=== PATIENT | male | born 1990 | race Caucasian/White ===

== ENCOUNTER → 2019-02-17 | Outpatient (CLI) | payer OTHER ==
[~2019-02-17] MED LIST: ZOFR4TAB16 PO
--- NOTE | 2019-02-17 17:17 | REP ---
CT ABDOMEN WITHOUT CONTRAST: CT ABDOMEN WAS PERFORMED WITHOUT IV CONTRAST: Sagittal and coronal reconstructions images are performed. Visualized lung bases are clear. The liver is grossly unremarkable. The gallbladder is contracted. There is no definite biliary dilatation. The spleen is normal in size with no intrinsic abnormality. The adrenal glands are normal. The pancreas is grossly unremarkable. Kidneys demonstrate no contour abnormality or hydronephrosis. There is a 2 mm intrarenal calculus in the mid right renal collecting system with a punctate calcification in the lower pole. There are two adjacent intrarenal calcifications in the upper pole of the left kidney measuring approximately 2 mm in diameter, with a punctate calcification in the mid left kidney. There is no hydroureter bilaterally. Abdominal aorta is normal in caliber. No adenopathy is seen. There is no free air or free fluid in the abdomen. No bowel wall thickening is seen. The appendix is normal. IMPRESSION: Tiny intrarenal calculi bilaterally without hydronephrosis. No other significant abnormality. Electronically Signed by Zain Myers MD 02/18/2019 12:46 P
== END ==
LOC: M RAD 16:13
PROVIDERS: ATTEND Physician Assistant
DX: K41.90 Unilateral femoral hernia, without obstruction or gangrene, not specified as recurrent (principal)

== ENCOUNTER 2019-02-18 19:48 | Emergency (ER) | payer OTHER ==
[~2019-02-18] VITALS: Ht 175.3 cm; Wt 100.0 kg
[2019-02-18] MEDS ORDERED: ONDANSETRON 4MG/2ML VIAL (J2405) IV ONE (20:45)
[2019-02-18] MEDS ORDERED: NS 1,000 ML IV ONE (20:45)
[2019-02-18 21:13] LABS: BASO # 0.1 10^3/uL (0.0-0.2); BASO % 0.4 % (0.0-1.0); EOS # 0.2 10^3/uL (0.0-0.5); EOS % 1.4 % (0.0-3.0); HEMATOCRIT 50.3 % (42.0-52.0); HEMOGLOBIN 16.7 g/dl (13.5-17.5); LYMPH # 1.4 10^3/uL (1.5-5.0); LYMPH % 11.3 % (24.0-44.0); MEAN CORPUSCULAR HEMOGLOBIN 29.1 pg (27.0-33.0); MEAN CORPUSCULAR HGB CONC 33.2 g/dl (32.0-36.5); MEAN CORPUSCULAR VOLUME 87.6 fl (80.0-96.0); MONO % 8.4 % (0.0-5.0); NEUTROPHILS # 9.7 10^3/uL (1.5-8.5); NEUTROPHILS % 78.1 % (36.0-66.0); PLATELET COUNT, AUTOMATED 170 10^3/uL (150-450); RED BLOOD COUNT 5.74 10^6/uL (4.30-6.10); WHITE BLOOD COUNT 12.4 10^3/uL (4.0-10.0)
[2019-02-18 21:42] LABS: ALBUMIN 3.3 GM/DL (3.2-5.2); ALT/SGPT 19 U/L (12-78); BILIRUBIN,DIRECT 0.2 MG/DL (0.0-0.2); BILIRUBIN,TOTAL 1.3 MG/DL (0.2-1.0); BLOOD UREA NITROGEN 16 MG/DL (7-18); CALCIUM LEVEL 7.1 MG/DL (8.5-10.1); CARBON DIOXIDE LEVEL 23 MEQ/L (21-32); CHLORIDE LEVEL 113 MEQ/L (98-107); CREATININE FOR GFR 0.81 MG/DL (0.70-1.30); GLOMERULAR FILTRATION RATE > 60.0 (>60); GLUCOSE, FASTING 79 MG/DL (70-100); LIPASE 56 U/L (73-393); POTASSIUM SERUM 3.3 MEQ/L (3.5-5.1); SODIUM LEVEL 144 MEQ/L (136-145); TOTAL PROTEIN 5.6 GM/DL (6.4-8.2)
[2019-02-18] MEDS ORDERED: POTASSIUM CHLORIDE 10 MEQ SR TABLET PO ONE (22:00)
[2019-02-18] MEDS ORDERED: ISOVUE-370 76% 100ML VIAL (Q9967) As Ordered ONE (22:01)
--- NOTE | 2019-02-18 22:54 | REPVR ---
PROCEDURE INFORMATION: Exam: CT Abdomen And Pelvis With Contrast Exam date and time: 02/18/2019 10:13 PM Age: 28 years old Clinical history: Abdominal pain; Localized; Right; Additional info: R sided abd pain TECHNIQUE: Imaging protocol: Computed tomography of the abdomen and pelvis with intravenous contrast. Radiation optimization: All CT scans at this facility use at least one of these dose optimization techniques: automated exposure control; mA and/or kV adjustment per patient size (includes targeted exams where dose is matched to clinical indication); or iterative reconstruction. Contrast material: ISOVUE 370; Contrast volume: 100 ml; Contrast route: IV; COMPARISON: CT Abdomen without contrast 2019-02-17 16:32 FINDINGS: Liver: Normal. No mass. Gallbladder and bile ducts: Normal. No calcified stones. No ductal dilation. Pancreas: Normal. No ductal dilation. Spleen: Normal. No splenomegaly. Adrenals: Normal. No mass. Kidneys and ureters: Small punctate nonobstructing renal calculi. Stomach and bowel: Gastric distention. Mild colonic wall thickening and mucosal enhancement. Correlate for mild colitis. Appendix: No evidence of appendicitis. Intraperitoneal space: Unremarkable. No free air. No significant fluid collection. Vasculature: Unremarkable. No abdominal aortic aneurysm. Lymph nodes: Unremarkable. No enlarged lymph nodes. Bladder: Unremarkable as visualized. Reproductive: Unremarkable as visualized. Bones/joints: Unremarkable. No acute fracture. Soft tissues: Unremarkable. IMPRESSION: 1. Small punctate nonobstructing renal calculi. 2. Mild colonic wall thickening and mucosal enhancement. Correlate for mild colitis. Electronically signed by: Kingsley Tejeda On 02/18/2019 22:53:59 PM
[2019-02-19] MEDS ORDERED: ZOFR4TAB16 PO (00:50)
[2019-02-19 01:02] VITALS: BP 116/56
== END 2019-02-19 01:07 | disposition home or self-care (01) ==
LOC: M ED 19:48
DX: A08.11 Acute gastroenteropathy due to Norwalk agent (principal); F17.200 Nicotine dependence, unspecified, uncomplicated
CPT/HCPCS: 74177; 80048; 80076; 83690; 85025; 87507; 93041; 96361; 96374; 99284; J2405; Q9967